=== PATIENT | male | born 1955 | race Caucasian/White ===

== ENCOUNTER 2018-01-28 18:56 | Emergency (ER) | payer OTHER ==
[2018-01-28 19:03] VITALS: BP 147/86; PULSE 88; TEMP 98.1; BMI 32.3
--- NOTE | 2018-01-28 19:35 | PDOC ---
History of Present Illness - General Chief Complaint: Pain, Acute Stated Complaint: PAIN, ACUTE Time Seen by Provider: 01/28/18 19:13 History Source: Patient Exam Limitations: No Limitations - History of Present Illness Initial Comments: CHIEF COMPLAINT: 62 y/o afebrile male with no significant PMH c/o atraumatic right low back pain that radiates down to his right leg. HISTORY OF PRESENT ILLNESS: He states he woke up with the pain 5 days ago and does not recall lifting anything heavy or twisting awkwardly. He denies f/c, n/v /d, CP, SOB, abd pain, hematuria, dysuria, numbness/tingling in LEs, back trauma , slip and fall. He took 1 800mg ibuprofen which helped a little bit. Vital signs on arrival are within normal limits. REVIEW OF SYSTEMS: GENERAL/CONSTITUTIONAL: No fever/chills. No weakness. No weight change. GASTROINTESTINAL: No abd pain, nausea, vomiting, diarrhea. GENITOURINARY: No dysuria, frequency, or change in urination. MUSCULOSKELETAL: +right sided low back pain radiating to right leg. No joint or muscle swelling or pain. No neck pain. SKIN: No rash or easy bruising. NEUROLOGIC: No headache, vertigo, loss of consciousness, or loss of sensation. PHYSICAL EXAM: GENERAL: The patient is awake, alert, and fully oriented, in no acute distress. He is well appearing and ambulatory with normal gait. ABDOMEN: Soft, non-distended, non-tender even to deep palpation, no hepatomegaly or splenomegaly, no masses. BACK: Reproducible pain with palpation of right lumbar paravertebral muscles. No midline lumbar spine TTP or step offs. No CVA TTP b/l. Full flexion, extension and lateral movements of lumbar spine. EXTREMITIES: Normal range of motion, no edema. NEUROLOGICAL: Normal speech, normal gait. CN II-XII grossly intact. No saddle anesthesia. PSYCH: Normal mood, normal affect. SKIN: Warm, dry, normal turgor, no rashes or lesions noted. Past History - Past Medical History Allergies/Adverse Reactions: Allergies Allergy/AdvReac Type Severity Reaction Status Date / Time No Known Allergies Allergy Verified 01/28/18 19:02 Home Medications: Ambulatory Orders Amlodipine Besylate [Norvasc -] 5 mg PO DAILY 12/17/14 Ascorbate Calcium [Vitamin C] 500 mg PO DAILY 12/17/14 Diclofenac Sodium [Diclofenac Sodium ER] 100 mg PO DAILY 12/17/14 Doxazosin Mesylate 4 mg PO DAILY 12/17/14 Hydrocodone/Acetaminophen [Hydrocodon-Acetaminoph 2.5-325] PRN 12/17/14 Lisinopril [Prinivil] 20 mg PO DAILY 12/17/14 Oxybutynin Chloride 5 mg PO BID 12/17/14 Polyethylene Glycol 3350 [Gavilax] 17 gm PO DAILY PRN 12/17/14 Sennosides [Senna Lax] 8.6 mg PO PRN 12/17/14 Sennosides [Senokot] 2 each PO DAILY #0 tablet 12/17/14 Zolpidem Tartrate 10 mg PO DAILY PRN 12/17/14 Naproxen 500 mg PO BID #20 tablet 01/28/18 COPD: No Disorders: Yes (BPH) HTN: Yes - Suicide/Smoking/Psychosocial Hx Smoking History: Never smoked Hx Alcohol Use: No Drug/Substance Use Hx: No *Physical Exam - Vital Signs Last Vital Signs Temp Pulse Resp BP Pulse Ox 98.1 F 88 18 147/86 99 01/28/18 19:01 01/28/18 19:01 01/28/18 19:01 01/28/18 19:01 01/28/18 19:01 Medical Decision Making - Medical Decision Making A/P: 62 y/o male with right sided low back pain with sciatica. Plan is to send rx for naproxen to his pharmacy. INstructed him to take with food, apply heating pad and stretch affected area. Suggested he f/u with his regular doctor and return to the ER immediately with any worsening or concerning symptoms. The patient verbalizes understanding of all instructions, has no further questions and is awaiting discharge. *DC/Admit/Observation/Transfer Diagnosis at time of Disposition: Low back pain with sciatica Qualifiers: Chronicity: acute Back pain laterality: right Sciatica laterality: sciatica of right side Qualified Code(s): M54.41 - Lumbago with sciatica, right side - Discharge Dispostion Disposition: HOME Condition at time of disposition: Good - Referrals Referrals: Renny Schmidt MD [Primary Care Provider] - (Call Tuesday) - Patient Instructions Printed Discharge Instructions: DI for Back Pain With Sciatica Additional Instructions: Discharge Instructions: -You have back pain with sciatica -A prescription for pain medication was sent to your pharmacy; please take WITH FOOD. -Apply heating pad to affected area -Stretch affected area -Avoid lifting -Follow up with your doctor on Tuesday -Return to the ER with any worsening or concerning symptoms. Instrucciones de descarga: -Tienes dolor de espalda con citica - Jacquelin receta para medicamentos para el dolor fue enviada a jennings farmacia; por favor erica CON ALIMENTOS. -Aplicar la almohadilla trmica al teresa afectada -Stretch teresa afectada -Evitar levantamiento -Siga con jennings doctor el -Volver a la khalif de emergencias con cualquier empeoramiento o sntomas. Print Language: MALTESE - Post Discharge Activity
== END 2018-01-29 00:45 | disposition home or self-care (01) ==
LOC: JERFT 18:56
DX: M54.41 Lumbago with sciatica, right side (principal); I10 Essential (primary) hypertension; N40.0 Benign prostatic hyperplasia without lower urinary tract symptoms
CPT/HCPCS: 99281-25

== ENCOUNTER 2018-09-23 09:04 | Emergency (ER) | payer OTHER ==
[2018-09-23 09:11] VITALS: BP 135/87; PULSE 78; TEMP 98.7; BMI 33.4
[2018-09-23] MEDS ORDERED: IBUPROFEN 600 MG TABLET (FP) PO ONE ×2 (10:00→10:02)
--- NOTE | 2018-09-23 10:00 | PDOC ---
History of Present Illness - General Chief Complaint: Injury Stated Complaint: FALL, RT SHOULDER PAIN Time Seen by Provider: 09/23/18 09:42 History Source: Patient Exam Limitations: No Limitations - History of Present Illness Initial Comments: CHIEF COMPLAINT: 63 y/o male c/o right shoulder pain since fall yesterday. HISTORY OF PRESENT ILLNESS: Patient slipped and fell onto right hand yesterday. He states he's had right shoulder pain since. He put alcohol on it. He denies numbness/tingling, inability to move right arm. Vital signs on arrival are within normal limits. REVIEW OF SYSTEMS: GENERAL/CONSTITUTIONAL: No fever MUSCULOSKELETAL: +right shoulder pain. No neck or back pain. SKIN: No rash or easy bruising. NEUROLOGIC: No headache, vertigo, loss of consciousness, or loss of sensation. PHYSICAL EXAM: VITAL_SIGNS: within normal limits GENERAL_APPEARANCE: alert, cooperative, no obvious discomfort. MENTAL_STATUS: speech clear, oriented X 3, responds appropriately to questions. NEURO: motor intact and sensory intact in injured extremity. EXTREMITIES: Minimal TTP of right AC joint. Full flexion, extension, adduction and abduction of right shoulder. No clavicular tenting or deformities b/l. Equal shoulder shrug b/l. SKIN: warm, dry, good color. Past History - Past Medical History Allergies/Adverse Reactions: Allergies Allergy/AdvReac Type Severity Reaction Status Date / Time No Known Allergies Allergy Verified 09/23/18 09:10 Home Medications: Ambulatory Orders Amlodipine Besylate [Norvasc -] 5 mg PO DAILY 12/17/14 Ascorbate Calcium [Vitamin C] 500 mg PO DAILY 12/17/14 Diclofenac Sodium [Diclofenac Sodium ER] 100 mg PO DAILY 12/17/14 Doxazosin Mesylate 4 mg PO DAILY 12/17/14 Hydrocodone/Acetaminophen [Hydrocodon-Acetaminoph 2.5-325] PRN 12/17/14 Lisinopril [Prinivil] 20 mg PO DAILY 12/17/14 Oxybutynin Chloride 5 mg PO BID 12/17/14 Polyethylene Glycol 3350 [Gavilax] 17 gm PO DAILY PRN 12/17/14 Sennosides [Senna Lax] 8.6 mg PO PRN 12/17/14 Sennosides [Senokot] 2 each PO DAILY #0 tablet 02/10/15 Zolpidem Tartrate 10 mg PO DAILY PRN 12/17/14 Naproxen 500 mg PO BID #20 tablet 01/28/18 COPD: No Disorders: Yes (BPH) HTN: Yes - Suicide/Smoking/Psychosocial Hx Smoking History: Never smoked Hx Alcohol Use: No Drug/Substance Use Hx: No *Physical Exam - Vital Signs Last Vital Signs Temp Pulse Resp BP Pulse Ox 98.7 F 78 18 135/87 97 09/23/18 09:08 09/23/18 09:08 09/23/18 09:08 09/23/18 09:08 09/23/18 09:08 Medical Decision Making - Medical Decision Making A/P: 63 y/o male with minor right rotator cuff strain. Will give PO ibuprofen in the ER. Suggested he alternate between ice and heat at home, and take ibuprofen for pain every 6 hours with food. Will give referral to ortho if needed. The patient verbalizes understanding of all instructions, has no further questions and is awaiting discharge. *DC/Admit/Observation/Transfer Diagnosis at time of Disposition: Rotator cuff strain Qualifiers: Encounter type: initial encounter Laterality: right Qualified Code(s): S46.011A - Strain of muscle(s) and tendon(s) of the rotator cuff of right shoulder, initial encounter - Discharge Dispostion Disposition: HOME Condition at time of disposition: Good - Referrals Referrals: Renny Schmidt MD [Primary Care Provider] - 3 days Memo Zaman MD [Staff Physician] - - Patient Instructions Printed Discharge Instructions: DI for Rotator Cuff Injury, How To Perform RICE (Rest, Ice, Compress, Elevate) Additional Instructions: Discharge Instructions: -You strained the rotator cuff muscles in your right shoulder -Please alternate between a heating pad and ice to the affected area -Take 600mg of over the counter ibuprofen every 6 hours with food for pain if needed -Call Dr. Schmidt next week and schedule follow up appointment Instrucciones de descarga: -Usted tens los msculos del manguito rotador en jennings hombro derecho -Por favor, alterne entre odalys almohadilla trmica y hielo al teresa afectada -Prompton 600 mg de ibuprofeno sin receta cada 6 horas con alimento para el dolor si es necesario -Llamar al Dr. Schmidt la prxima semana y programar odalys mindi de seguimiento. Print Language: LIBYAN - Post Discharge Activity
== END 2018-09-23 10:15 | disposition home or self-care (01) ==
LOC: JERFT 09:04
DX: S46.011A Strain of muscle(s) and tendon(s) of the rotator cuff of right shoulder, initial encounter (principal); W01.0XXA Fall on same level from slipping, tripping and stumbling without subsequent striking against object, initial encounter; Y93.89 Activity, other specified; Y92.89 Other specified places as the place of occurrence of the external cause; Y99.8 Other external cause status; I10 Essential (primary) hypertension; N40.0 Benign prostatic hyperplasia without lower urinary tract symptoms
CPT/HCPCS: 99281-25

== ENCOUNTER 2021-09-07 04:34 | Day surgery (SDC) | payer OTHER ==
[2021-09-03 09:23] VITALS: BMI 32.8
[2021-09-07] MEDS ORDERED: MIDAZOLAM HCL 2 MG/2 ML SINGLE DOSE VIAL ONE (08:36)
[2021-09-07 15:14] VITALS: TEMP 97.8
[2021-09-07 15:19] VITALS: BP 124/71; PULSE 69
== END 2021-09-07 13:00 | disposition home or self-care (01) ==
LOC: JASU-SURG 04:34
PROVIDERS: ATTEND Urology
PROC: 0TF4XZZ Fragmentation in Left Kidney Pelvis, External Approach (ICD-10-PCS; principal; 2021-09-07 10:00)
DX: N20.0 Calculus of kidney (principal)

== ENCOUNTER 2024-02-20 04:11 | Day surgery (SDC) | payer OTHER ==
[2024-02-17 10:23] VITALS: BMI 32.3
[2024-02-20 07:25] VITALS: TEMP 97.5
[2024-02-20] MEDS ORDERED: MIDAZOLAM HCL 2 MG/2 ML SINGLE DOSE VIAL ONE (09:11)
[2024-02-20] MEDS ORDERED: FENTANYL CITRATE/PF 50 MCG/ML VIAL ONE ×2 (09:11→09:50)
[2024-02-20] MEDS ORDERED: ONDANSETRON 4 MG/2 ML VIAL ONE (09:11)
[2024-02-20 10:11] VITALS: RESP 18
[2024-02-20 11:03] VITALS: BP 120/70; PULSE 80
== END 2024-02-20 11:08 | disposition home or self-care (01) ==
LOC: JASU-SURG 04:11
PROVIDERS: ATTEND Urology
PROC: 0TF3XZZ Fragmentation in Right Kidney Pelvis, External Approach (ICD-10-PCS; principal; 2024-02-20 09:30)
DX: N20.0 Calculus of kidney (principal)